=== PATIENT | female | born 1960 | race Caucasian/White ===

== ENCOUNTER 2019-02-12 03:28 | Emergency (ER) | payer OTHER ==
[~2019-02-12] VITALS: Ht 170.2 cm; Wt 76.0 kg
[2019-02-12 03:31] VITALS: BP 100/61
== END 2019-02-12 04:11 ==
LOC: ED 04:05
DX: M54.6 Pain in thoracic spine (principal); R05 Cough; R53.1 Weakness; R06.02 Shortness of breath
CPT/HCPCS: 99281

== ENCOUNTER 2019-02-12 12:21 | Outpatient (CLI) | payer SELFPAY | END 2019-02-12 23:59 | disposition home or self-care (01) | LOC: RAD 12:21 | PROVIDERS: ATTEND Internal Medicine Hematology & Oncology | DX: Z45.2 Encounter for adjustment and management of vascular access device (principal); C50.919 Malignant neoplasm of unspecified site of unspecified female breast | CPT/HCPCS: 36573; C1751 ==